=== PATIENT | male | born 1985 | race American Indian/Alaskan Native ===

== ENCOUNTER 2016-09-27 13:42 | Emergency (ER) | payer MEDICAID ==
[~2016-09-27] VITALS: Ht 170.2 cm; Wt 74.8 kg
[2016-09-27 15:25] VITALS: BP 142/94
== END 2016-09-27 16:05 | disposition home or self-care (01) ==
LOC: ER 13:42
DX: L02.416 Cutaneous abscess of left lower limb (principal)
CPT/HCPCS: 10060

== ENCOUNTER 2016-09-29 15:49 | Emergency (ER) | payer MEDICAID ==
[~2016-09-29] VITALS: Ht 170.2 cm; Wt 104.3 kg
[2016-09-29 17:08] VITALS: BP 124/69
== END 2016-09-29 17:47 | disposition home or self-care (01) ==
LOC: ER 15:54
DX: Z76.1 Encounter for health supervision and care of foundling (principal); Z48.01 Encounter for change or removal of surgical wound dressing